=== PATIENT | male | born 1970 | race Caucasian/White ===

== ENCOUNTER 2021-02-23 18:36 | Emergency (ER) | payer OTHER, SELFPAY ==
[2021-02-23 18:42] VITALS: BP 155/95; PULSE 84; RESP 18; TEMP 36.8; O2SAT 96; BMI 36.7
--- NOTE | 2021-02-23 18:52 | ED_ITS ---
HPI - Burn/Smoke Inhalation General: Chief complaint: Burn/Smoke Inhalation Stated complaint: Injury Burn Time Seen by Provider: 02/23/21 18:50 Course Vital Signs: Vital signs: Vital Signs Temperature 98.2 F 02/23/21 18:42 Pulse Rate 84 02/23/21 18:42 Respiratory Rate 18 02/23/21 18:42 Blood Pressure 155/95 02/23/21 18:42 Pulse Oximetry 96 02/23/21 18:42 Coding Level of Care Code ED Director Utilization Management for Jordan Bravo
--- NOTE | 2021-02-23 19:02 | W.ED.BURNSMK ---
HPI - Burn/Smoke Inhalation General: Chief complaint: Burn/Smoke Inhalation Stated complaint: Injury Burn Time Seen by Provider: 02/23/21 18:50 History of Present Illness: HPI Narrative: Patient had some manifold at work about 3 hours ago with resulting superficial ferreira to the pads of his fingers and slightly to the palm. No other injury. 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) Smoke Inhalation: none Place: unknown (Work) Location - Extremities: Right: hand Severity: mild Severity scale (1-10): 1 Associated symptoms: Reports no associated symptoms; Deny fever(s) Review of Systems Const: Denies: fever(s) or chills Skin/Breast: Reports: skin tenderness, skin swelling and other (Burn to right hand) Psych: Denies: anxiety or depression Physical Exam Const: COMMON NORMALS: no acute distress GENERAL APPEARANCE: cooperative Psych: COMMON NORMALS: mental status grossly normal ATTITUDE: Yes calm Skin: OTHER: Patient has superficial ferreira to the pads of fingers right hand and slightly to the palm. Course Vital Signs: Vital signs: Vital Signs Temperature 98.2 F 02/23/21 18:42 Pulse Rate 84 02/23/21 18:42 Respiratory Rate 18 02/23/21 18:42 Blood Pressure 155/95 02/23/21 18:42 Pulse Oximetry 96 02/23/21 18:42 Discharge Plan Discharge Patient Disposition: Home Clinical Impression: Burn Condition: Stable Prescriptions: New Silvadene 1 % cream 1 applic topical BID PRN (Reason: wound healing) Qty: 50 RF: 0 tramadol 50 mg tablet 50 mg PO Q6H PRN (Reason: pain) Qty: 7 RF: 0 Discharge Orders: Discharge ED (Routine); Ordered 02/23/21 Ordered By: Abhi Hardy Referrals: Hung Beach MD [Primary Care Provider] - Discharge Diet: Usual diet Discharge Activity: Increase activity as tolerated Patient Instructions: Superficial Burn (ED) Activity Restrictions/Additional Instructions: Take medication as directed. Follow-up as directed. Follow-up work comp provider as directed by the company. Can take Tylenol and/or ibuprofen for discomfort and medication was prescribed. Coding Level of Care Code ED Track Repair Person for Jordan Bravo
[2021-02-23] MEDS: HYDROcodone-acetaminophen 7.5-325 mg Tablet 1 TAB PO (19:08)
[2021-02-23 20:03] VITALS: RESP 18
== END 2021-02-23 20:04 | disposition home or self-care (01) ==
PROVIDERS: Emergency Provider Nurse Practitioner Family; PCP Family Medicine
DX: T23.041A Burn of unspecified degree of multiple right fingers (nail), including thumb, initial encounter (principal); T23.051A Burn of unspecified degree of right palm, initial encounter; X17.XXXA Contact with hot engines, machinery and tools, initial encounter
CPT/HCPCS: 99282